=== PATIENT | female | born 1995 | race Hispanic/Latino ===

== ENCOUNTER 2019-07-04 14:58 | Emergency (ER) | payer SELFPAY ==
--- NOTE | 2019-07-04 16:10 | ER ---
Nurse's Notes [facility] Name: Rona Godwin Age: 23 yrs Sex: Female : 1995 Arrival Date: 07/04/2019 Time: 15:01 Bed 12 Private MD: Diagnosis: Strain of muscle, fascia and tendon at neck level Presentation: 07/04 15:02 Presenting complaint: Patient states: right face/arm/hand pain x 3 months. Denies fall sv or injury. Transition of care: patient was not received from another setting of care. Onset of symptoms was March 2019. Risk Assessment: Do you want to hurt yourself or someone else? Patient reports no desire to harm self or others. Care prior to arrival: None. 15:02 Method Of Arrival: Ambulatory sv 15:02 Acuity: LOGAN 4 sv 15:03 Initial Sepsis Screen: Does the patient meet any 2 criteria? No. Patient's initial sv sepsis screen is negative. Does the patient have a suspected source of infection? No. Patient's initial sepsis screen is negative. 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 sv Triage Assessment: 15:08 General: Appears in no apparent distress. comfortable, Behavior is calm, cooperative, sv appropriate for age. Pain: Complains of pain in right zygomatic area, right cheek and right arm. Neuro: Level of Consciousness is awake, alert, obeys commands, Gait is steady. Respiratory: Respiratory effort is even, unlabored, Respiratory pattern is regular, symmetrical. 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 - Social history:: Smoking status: Patient/guardian denies using tobacco. - Ebola Screening: : No symptoms or risks identified at this time. Screenin:10 Abuse screen: Denies threats or abuse. Nutritional screening: No deficits noted. tw2 Tuberculosis screening: No symptoms or risk factors identified. Fall Risk None identified. Assessment: 15:10 General: Appears in no apparent distress. obese, well groomed, Behavior is calm, tw2 cooperative, appropriate for age. Pain: Complains of pain in right arm and right cheek and right zygomatic area. Neuro: Level of Consciousness is awake, alert, obeys commands, Oriented to person, place, time, situation. Cardiovascular: Patient's skin is warm and dry. Respiratory: Airway is patent Respiratory effort is even, unlabored, Respiratory pattern is regular, symmetrical. GI: No signs and/or symptoms were reported involving the gastrointestinal system. : No signs and/or symptoms were reported regarding the genitourinary system. EENT: No signs and/or symptoms were reported regarding the EENT system. Musculoskeletal: Circulation, motion, and sensation intact. Range of motion: intact in all extremities, Reports pain in right arm and back of neck and shoulders. 15:10 Reassessment: use of supervisor byproducts Ameya # [id number] at this time. tw2 16:32 Reassessment: Patient appears in no apparent distress at this time. No changes from tw2 previously documented assessment. Patient and/or family updated on plan of care and expected duration. Pain level reassessed. Patient is alert, oriented x 3, equal unlabored respirations, skin warm/dry/pink. Vital Signs: 15:03 BP 124 / 88; Pulse 84; Resp 16; Temp 98; Pulse Ox 99% ; sv ED Course: 15:01 Patient arrived in ED. mr 15:03 Triage completed. sv 15:03 Arm band placed on. sv 15:10 Mona Espinoza, RN is Primary Nurse. tw2 15:10 Bed in low position. Call light in reach. Adult w/ patient. tw2 15:12 Chandrakant Muñoz NP is PHCP. pm1 15:12 Selvin Alexander MD is Attending Physician. pm1 16:33 No provider procedures requiring assistance completed. Patient did not have IV access tw2 during this emergency room visit. Administered Medications: 16:20 Drug: Flexeril 10 mg Route: PO; tw2 16:32 Follow up: Response: No adverse reaction tw2 16:20 Drug: predniSONE 60 mg Route: PO; tw2 16:32 Follow up: Response: No adverse reaction tw2 16:20 Drug: Emeigh 5 mg-325 mg 1 tabs Route: PO; tw2 16:31 Follow up: Response: No adverse reaction; Pain is decreased; RASS: Alert and Calm (0) tw2 Outcome: 16:10 Discharge ordered by . pm1 16:34 Discharged to home ambulatory, with friend. tw2 16:34 Condition: stable 16:34 Discharge instructions given to patient, friend, Instructed on discharge instructions, follow up and referral plans. no drinking with medication, no driving heavy equipment, medication usage, Demonstrated understanding of instructions, follow-up care, medications, Prescriptions given X 3. 16:34 Patient left the ED. tw2 Signatures: Ilda Matos RN RN Yana Roy ToniChandrakant NP DIRECTOR OF MARKET INTELLIGENCE pm1 Mona Espinoza RN RN tw2 Corrections: (The following items were deleted from the chart) 15:04 15:02 Presenting complaint: Patient states: right face/arm/hand pain x 3 months sv sv 15:07 15:02 Presenting complaint: Patient states: right face/arm/hand pain x 3 months. sv sv
--- NOTE | 2019-07-04 16:11 | EDPHYS ---
Physician Documentation [facility] Name: Rona Godwin Age: 23 yrs Sex: Female : 1995 Arrival Date: 07/04/2019 Time: 15:01 Bed 12 Private MD: ED Physician Selvin Alexander HPI: 07/04 16:09 This 23 yrs old Female presents to ER via Ambulatory with complaints of Right pm1 Shoulder Pain. 16:09 The patient or guardian complains of pain. pm1 16:09 right trapezius. Context: resulted from an unknown reason, The patient reports no pm1 decreased range of motion. The patient reports no obvious deformity. Onset: The symptoms/episode began/occurred 3 month(s) ago. Modifying factors: the symptoms are alleviated by nothing. The symptoms are aggravated by movement. Associated signs and symptoms: Pertinent negatives: abdominal pain, chest pain, Numbness in right arm tingling. Severity of symptoms: in the emergency department the symptoms are unchanged. Treatment prior to arrival includes: no previous treatment. The patient has not experienced similar symptoms in the past. The patient has not recently seen a physician. 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 - Social history:: Smoking status: Patient/guardian denies using tobacco. - Ebola Screening: : No symptoms or risks identified at this time. ROS: 16:09 Constitutional: Negative for fever, chills, and weight loss. pm1 16:09 Cardiovascular: Negative for chest pain, palpitations, and edema, Respiratory: Negative for shortness of breath, cough, wheezing, and pleuritic chest pain, Abdomen/GI: Negative for abdominal pain, nausea, vomiting, diarrhea, and constipation. 16:09 MS/Extremity: Negative for injury and deformity, Skin: Negative for injury, rash, and discoloration. 16:09 Neuro: Negative for headache, weakness, numbness, tingling, and seizure. 16:09 Neck: Positive for pain with movement. 16:09 Back: Positive for of the right trapezius, Pain. Exam: 16:09 Constitutional: This is a well developed, well nourished patient who is awake, alert, pm1 and in no acute distress. 16:09 Eyes: Pupils equal round and reactive to light, extra-ocular motions intact. Lids and lashes normal. Conjunctiva and sclera are non-icteric and not injected. Cornea within normal limits. Periorbital areas with no swelling, redness, or edema. ENT: Nares patent. No nasal discharge, no septal abnormalities noted. Tympanic membranes are normal and external auditory canals are clear. Oropharynx with no redness, swelling, or masses, exudates, or evidence of obstruction, uvula midline. Mucous membranes moist. 16:09 Chest/axilla: Normal chest wall appearance and motion. Nontender with no deformity. No lesions are appreciated. Cardiovascular: Regular rate and rhythm with a normal S1 and S2. No gallops, murmurs, or rubs. Normal PMI, no JVD. No pulse deficits. Respiratory: Lungs have equal breath sounds bilaterally, clear to auscultation and percussion. No rales, rhonchi or wheezes noted. No increased work of breathing, no retractions or nasal flaring. Abdomen/GI: Soft, non-tender, with normal bowel sounds. No distension or tympany. No guarding or rebound. No evidence of tenderness throughout. 16:09 Skin: Warm, dry with normal turgor. Normal color with no rashes, no lesions, and no evidence of cellulitis. MS/ Extremity: Pulses equal, no cyanosis. Neurovascular intact. Full, normal range of motion. 16:09 Head/face: Noted is no obvious of injury or deformity except tenderness, of the right side of scalp. 16:09 Neck: External neck: crepitus, is not appreciated, tenderness, of the occiput and right trapezius. 16:09 Back: muscle spasm, is appreciated in the right trapezius and right scapular area. 16:09 Neuro: Orientation: is normal, Motor: is normal, moves all fours, Gait: is steady, at a normal pace, without difficulty. Vital Signs: 15:03 BP 124 / 88; Pulse 84; Resp 16; Temp 98; Pulse Ox 99% ; sv MDM: 15:22 Patient medically screened. [facility] 16:09 Data reviewed: vital signs. Data interpreted: Pulse oximetry: on room air is 99 %. pm1 Interpretation: normal. Counseling: I had a detailed discussion with the patient and/or guardian regarding: the historical points, exam findings, and any diagnostic results supporting the discharge/admit diagnosis, the need for outpatient follow up, to return to the emergency department if symptoms worsen or persist or if there are any questions or concerns that arise at home. Administered Medications: 16:20 Drug: Flexeril 10 mg Route: PO; tw2 16:32 Follow up: Response: No adverse reaction tw2 16:20 Drug: predniSONE 60 mg Route: PO; tw2 16:32 Follow up: Response: No adverse reaction tw2 16:20 Drug: Wallace 5 mg-325 mg 1 tabs Route: PO; tw2 16:31 Follow up: Response: No adverse reaction; Pain is decreased; RASS: Alert and Calm (0) tw2 Disposition: 07/05 07:00 Co-signature as Attending Physician, Selvin Alexander MD I agree with the assessment and phu plan of care. Disposition: 07/04/19 16:10 Discharged to Home. Impression: Strain of muscle, fascia and tendon at neck level. - Condition is Stable. - Discharge Instructions: Muscle Strain. - Prescriptions for Tylenol- Codeine #3 300-30 mg Oral Tablet - take 2 tablets by ORAL route every 6 hours As needed; 20 tablet. Cyclobenzaprine 10 mg Oral Tablet - take 1 tablet by ORAL route every 8 hours As needed; 30 tablet. Medrol (Demarco) 4 mg Oral Tablets, Dose Pack - take 1 tablet by ORAL route as directed - follow package instructions; 1 packet. - Work release form, Medication Reconciliation Form, Thank You Letter, Antibiotic Education, Prescription Opioid Use form. - Follow up: Emergency Department; When: As needed; Reason: Worsening of condition. Follow up: Private Physician; When: 2 - 3 days; Reason: Recheck today's complaints, Continuance of care, Re-evaluation by your physician. - Problem is new. - Symptoms have improved. Signatures: Idla Matos RN RN sv Anderson, Corey, MD MD cha Marinas, Patrick, HYPNOTHERAPIST HYPNOTHERAPIST pm1 Mona Espinoza RN RN tw2 Corrections: (The following items were deleted from the chart) 07/04 16:34 16:10 07/04/2019 16:10 Discharged to Home. Impression: Strain of muscle, fascia and tw2 tendon at neck level. Condition is Stable. Forms are Medication Reconciliation Form, Thank You Letter, Antibiotic Education, Prescription Opioid Use. Follow up: Emergency Department; When: As needed; Reason: Worsening of condition. Follow up: Private Physician; When: 2 - 3 days; Reason: Recheck today's complaints, Continuance of care, Re-evaluation by your physician. Problem is new. Symptoms have improved. pm1
[2019-07-04] MEDS ORDERED: CYCLOBENZAPRINE 10 MG TAB ONE (16:14)
[2019-07-04] MEDS ORDERED: HYDROCODONE/APAP 5/325 MG TAB ONE (16:15)
[2019-07-04] MEDS ORDERED: predniSONE 20 MG TAB ONE (16:15)
[2019-07-04 16:49] VITALS: BP 124/88; TEMP 98; O2SAT 99
== END 2019-07-04 16:34 | disposition home or self-care (01) ==
LOC: ER 14:58
DX: S16.1XXA Strain of muscle, fascia and tendon at neck level, initial encounter (principal); X58.XXXA Exposure to other specified factors, initial encounter; Y93.9 Activity, unspecified; Y92.9 Unspecified place or not applicable
CPT/HCPCS: 99283; J7512

== ENCOUNTER 2019-08-12 23:44 | Emergency (ER) | payer SELFPAY ==
--- OUTSIDE RECORDS SUMMARY | 2019-08-12 23:46 | XMS REPORT ---
:1995 [facility] Address [address] [place] [address] Dr. Hewitt [address] [place] [id number] Care Team Providers Name Role Phone Unavailable Unavailable Unavailable Problems This patient has no known problems. Allergies, Adverse Reactions, Alerts This patient has no known allergies or adverse reactions. Medications This patient has no known medications.
[2019-08-13] MEDS ORDERED: CYCLOBENZAPRINE 10 MG TAB ONE (00:47)
[2019-08-13] MEDS ORDERED: HYDROCODONE/APAP 7.5/325 MG TAB ONE (00:48)
--- NOTE | 2019-08-13 00:57 | ER ---
Nurse's Notes [facility] Name: Rona Godwin Age: 23 yrs Sex: Female : 1995 Arrival Date: 08/12/2019 Time: 23:48 Bed 18 Private MD: Diagnosis: Paresthesia of skin;Low back pain;Pain in right arm Presentation: 08/13 00:00 Presenting complaint: Patient states: "I've been having this right arm radiating to cc3 right leg pain since 3 months. 3 days ago I started to have right flank pain". Transition of care: patient was not received from another setting of care. Onset of symptoms was August 13, 2019. Risk Assessment: Do you want to hurt yourself or someone else? Patient reports no desire to harm self or others. Initial Sepsis Screen: Does the patient meet any 2 criteria? No. Patient's initial sepsis screen is negative. Does the patient have a suspected source of infection? No. Patient's initial sepsis screen is negative. Care prior to arrival: None. 00:00 Method Of Arrival: Ambulatory cc3 00:00 Acuity: LOGAN 4 cc3 Triage Assessment: 00:00 General: Appears in no apparent distress. comfortable, Behavior is calm, cooperative, cc3 appropriate for age. Pain: Complains of pain in right arm, right leg, right flank Pain currently is 8 out of 10 on a pain scale. Quality of pain is described as aching. EENT: No signs and/or symptoms were reported regarding the EENT system. Neuro: Level of Consciousness is awake, alert, obeys commands, Oriented to person, place, time, situation, Appropriate for age. Cardiovascular: Denies chest pain, Capillary refill < 3 seconds in bilateral fingers Patient's skin is warm and dry. Respiratory: Airway is patent Respiratory effort is even, unlabored, Respiratory pattern is regular, symmetrical, Breath sounds are clear bilaterally. GI: Abdomen is round non-distended, Bowel sounds present X 4 quads. : No signs and/or symptoms were reported regarding the genitourinary system. Derm: Skin is intact, is healthy with good turgor, Skin is pink, warm \\T\\ dry. normal. Musculoskeletal: Circulation, motion, and sensation intact. Range of motion: intact in all extremities. 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 - Social history:: Smoking status: Patient/guardian denies using tobacco, but has a distant history of tobacco abuse. - Ebola Screening: : No symptoms or risks identified at this time. Screenin:00 Abuse screen: Denies threats or abuse. Denies injuries from another. Nutritional cc3 screening: No deficits noted. Tuberculosis screening: No symptoms or risk factors identified. Fall Risk Ambulatory Aid- None/Bed Rest/Nurse Assist (0 pts). Gait- Normal/Bed Rest/Wheelchair (0 pts) Mental Status- Oriented to own ability (0 pts). Assessment: 00:00 General: see triage assessment. cc3 01:15 Reassessment: Patient appears in no apparent distress at this time. Patient and/or cc3 family updated on plan of care and expected duration. Pain level reassessed. Patient is alert, oriented x 3, equal unlabored respirations, skin warm/dry/pink. SUPERVISOR CORE SHOP Kassie discharged the patient home with prescription given. No IV cannula in situ. Patient left ER vitally stable and ambulatory with her family. No valuables left in the patient's room. Patient denies pain at this time. Patient states feeling better. Patient states symptoms have improved. Vital Signs: 00:00 BP 112 / 55; Pulse 84; Resp 16 S; Temp 98.3(O); Pulse Ox 98% on R/A; Weight 74.84 kg cc3 (R); Height 5 ft. 6 in. (167.64 cm) (R); Pain 8/10; 01:08 BP 115 / 64; Pulse 80; Resp 16 S; Pulse Ox 98% on R/A; cc3 00:00 Body Mass Index 26.63 (74.84 kg, 167.64 cm) cc3 ED Course: 08/12 23:48 Patient arrived in ED. cl3 08/13 00:00 Gunn[facility] Fernando [facility]-C [facility] la1 00:00 Selvin Alexander MD is Attending Physician. la1 00:00 Patient has correct armband on for positive identification. Bed in low position. Call cc3 light in reach. Side rails up X2. Pulse ox on. NIBP on. 00:00 Arm band placed on right wrist. Patient notified of wait time. cc3 00:12 Pam Gibson is Primary Nurse. cc3 00:25 Triage completed. cc3 01:15 No provider procedures requiring assistance completed. Patient did not have IV access cc3 during this emergency room visit. Administered Medications: 00:45 Drug: [place] (7.5 mg-325 mg) 1 tabs {Note: RASS 0.} Route: PO; cc3 01:15 Follow up: Response: No adverse reaction; Pain is decreased; RASS: Alert and Calm (0) cc3 00:45 Drug: Flexeril 10 mg Route: PO; cc3 01:15 Follow up: Response: No adverse reaction; Pain is decreased cc3 Outcome: 00:56 Discharge ordered by . la1 01:15 Discharged to home ambulatory, with family. cc3 01:15 Condition: stable 01:15 Discharge instructions given to patient, Instructed on discharge instructions, follow up and referral plans. medication usage, Demonstrated understanding of instructions, follow-up care, medications, Prescriptions given X 1. 01:23 Patient left the ED. cc3 Signatures: Gunnar Fernando, ENGINE HEAD REPAIRER-C ENGINE HEAD REPAIRER-Cla1 Pam Gibson cc3 Darlyn Sosa cl3
--- NOTE | 2019-08-13 00:58 | EDPHYS ---
Physician Documentation [facility] Name: Rona Godwin Age: 23 yrs Sex: Female : 1995 Arrival Date: 08/12/2019 Time: 23:48 Bed 18 Private MD: ED Physician Selvin Alexander HPI: 08/13 00:41 This 23 yrs old Female presents to ER via Ambulatory with complaints of Arm la1 Pain. 00:41 The patient or guardian complains of pain, tingling. The complaints affect the right la1 arm. Context: The problem was sustained at an unknown location, resulted from unknown. Onset: The symptoms/episode began/occurred 3 month(s) ago. Treatment prior to arrival includes: no previous treatment. Modifying factors: The symptoms are alleviated by nothing. the symptoms are aggravated by movement. Severity of symptoms: At their worst the symptoms were mild. The patient has experienced similar episodes in the past. Pt reports three months of intermittent pain and tingling to right arm that goes down to hand then recently in the past day began having pain in the right hip area that radiates to the right foot . 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 - Social history:: Smoking status: Patient/guardian denies using tobacco, but has a distant history of tobacco abuse. - Ebola Screening: : No symptoms or risks identified at this time. ROS: 00:43 Constitutional: Negative for fever, chills, and weight loss, Eyes: Negative for injury, la1 pain, redness, and discharge, ENT: Negative for injury, pain, and discharge, Neck: Negative for injury, pain, and swelling, Cardiovascular: Negative for chest pain, palpitations, and edema, Respiratory: Negative for shortness of breath, cough, wheezing, and pleuritic chest pain, Abdomen/GI: Negative for abdominal pain, nausea, vomiting, diarrhea, and constipation, Back: Negative for injury and pain, MS/Extremity: Negative for injury and deformity, Neuro: + for tingling in right arm and leg Exam: 00:43 Constitutional: This is a well developed, well nourished patient who is awake, alert, la1 and in no acute distress. Head/Face: Normocephalic, atraumatic. Eyes: Pupils equal round and reactive to light, extra-ocular motions intact. ENT: Mucous membranes moist. Neck: Supple, full range of motion without nuchal rigidity No Meningismus. Pain with downward traction and rotation of neck, mild point tenderness to C-spine Chest/axilla: Normal chest wall appearance and motion. Nontender with no deformity. No lesions are appreciated. Cardiovascular: Regular rate and rhythm with a normal S1 and S2. No gallops, murmurs, or rubs. Normal PMI, no JVD. No pulse deficits. Skin: Warm, dry with normal turgor. Normal color with no rashes, no lesions, and no evidence of cellulitis. MS/ Extremity: Pulses equal, no cyanosis. Neurovascular intact. Full, normal range of motion. Vital Signs: 00:00 BP 112 / 55; Pulse 84; Resp 16 S; Temp 98.3(O); Pulse Ox 98% on R/A; Weight 74.84 kg cc3 (R); Height 5 ft. 6 in. (167.64 cm) (R); Pain 8/10; 01:08 BP 115 / 64; Pulse 80; Resp 16 S; Pulse Ox 98% on R/A; cc3 00:00 Body Mass Index 26.63 (74.84 kg, 167.64 cm) cc3 MDM: 00:00 Patient medically screened. la1 00:52 Data reviewed: vital signs, nurses notes, I have discussed the patient's la1 presentation/case with the attending Emergency Department Physician; and as a result, I will discharge patient. Data interpreted: Pulse oximetry: on room air is 98 %. Interpretation: normal. Counseling: I had a detailed discussion with the patient and/or guardian regarding: the historical points, exam findings, and any diagnostic results supporting the discharge/admit diagnosis, to return to the emergency department if symptoms worsen or persist or if there are any questions or concerns that arise at home. ED course: Discussed exam and ROS findings with patient, has had this issue many times in the past and has taken steroids which eliminate the pain but then it comes back worse. Pt has been seen in multiple EDs for this complaint but has never followed up outpatient, pt is not interested in having a CT scan in the emergency department and wishes to follow up outpatient. Pt reports back in the right hip area and tingling/numbness in the l5-s1 distribution. Denies saddle anesthesia, loss of continence. Full ROM of arm and leg, motor function intact, no pulse deficits. Given information for neurology clinics in the area and return precautions. Administered Medications: 00:45 Drug: [place] (7.5 mg-325 mg) 1 tabs {Note: RASS 0.} Route: PO; cc3 01:15 Follow up: Response: No adverse reaction; Pain is decreased; RASS: Alert and Calm (0) cc3 00:45 Drug: Flexeril 10 mg Route: PO; cc3 01:15 Follow up: Response: No adverse reaction; Pain is decreased cc3 Disposition: 08/13/19 00:56 Discharged to Home. Impression: Paresthesia of skin, Low back pain, Pain in right arm. - Condition is Stable. - Discharge Instructions: Paresthesia, Back Pain, Adult, [id number], Heat Therapy, Radicular Pain. - Prescriptions for Cyclobenzaprine 10 mg Oral Tablet - take 1 tablet by ORAL route every 8 hours As needed; 30 tablet. - Work release form, Medication Reconciliation Form, Thank You Letter form. - Follow up: Private Physician; When: 2 - 3 days; Reason: Recheck today's complaints, Re-evaluation by your physician. - Problem is an ongoing problem. - Symptoms are unchanged. Addendum: 08/14/2019 09:25 Co-signature as Attending Physician, Selvin Alexander MD I agree with the assessment and c ambriz plan of care. Signatures: Dispatcher [employer] EDID Selvin Alexander MD MD cha Attema, Lee, FINISHER OPERATOR-C FINISHER OPERATOR-Cla1 Pma Gibson cc3 Corrections: (The following items were deleted from the chart) 08/13 01:11 00:52 ED course: Discussed exam and ROS findings with patient, has had this issue many la1 times in the past and has taken steroids which eliminate the pain but then it comes back worse. Pt has been seen in multiple EDs for this complaint but has never followed up outpatient, pt is not interested in having a CT scan in the emergency department and wishes to follow up outpatient. Pt reports back in the right hip area and tingling/numbness in the l5-s1 distribution. Denies saddle anesthesia, loss of continence. Full ROM of arm and leg, motor function intact, no pulse deficits. . la1 01:14 00:41 C Spine Wo Con+CT.RAD.BRZ ordered. EDMS EDMS 01:23 00:56 08/13/2019 00:56 Discharged to Home. Impression: Paresthesia of skin; Low back cc3 pain; Pain in right arm. Condition is Stable. Forms are Medication Reconciliation Form, Thank You Letter, Antibiotic Education, Prescription Opioid Use. Follow up: Private Physician; When: 2 - 3 days; Reason: Recheck today's complaints, Re-evaluation by your physician. Problem is an ongoing problem. Symptoms are unchanged. la1
[2019-08-13 01:48] VITALS: BP 112/55; TEMP 98.3; O2SAT 98
== END 2019-08-13 01:23 | disposition home or self-care (01) ==
LOC: ER 23:44
DX: R20.2 Paresthesia of skin (principal); M54.5 Low back pain; Z88.4 Allergy status to anesthetic agent
CPT/HCPCS: 99283

== ENCOUNTER 2023-05-09 02:25 | Inpatient (IN) | payer SELFPAY ==
--- OUTSIDE RECORDS SUMMARY | 2023-05-09 02:29 | XMS REPORT | Continuity of Care Document ---
:1995 Author Organization [facility] t Address [address] [facility] [address] [place] [id number] Care Team Providers Name Role Phone SANFORD ZAPATA Attending Clinician Unavailable Problems This patient has no known problems. Allergies, Adverse Reactions, Alerts Allergy Allergy Status Severity Reaction(s) Onset Inactive Treating Comm ents Source Name Type Date Date Clinician NAPROXEN DRUG Active Rash [facility] INGREDI 04-19 ity of 00:00: [address] Medications This patient has no known medications. Procedures This patient has no known procedures. Encounters Start End Encounter Admission Attending Care Care Encounter Source Date/Time Date/Time Type Type Clinicians Facility Department ID 2021-03-15 2021-03-15 Emergency X [facility] [[email or web address] ERT [id number] [facility] 21:46:00 21:46:00 [facility] 2019-08-16 2019-08-16 Emergency X [facility] [[email or web address] ERT [id number] [facility] 12:22:12 13:13:[address] [facility] Results This patient has no known results.
[2023-05-09 03:17] LABS: Absolute Lymphocytes (CBC) 2.4 K/uL (0.7-4.9); Hematocrit 37.5 % (36.0-45.0); Lymphocytes % 29.1 % (15.3-44.8); MCV 86.4 fL (80-100); MPV 7.4 fL (7.6-11.3); Platelets 255 thou/uL (152-406); RBC Red Blood Cell Count 4.34 M/uL (3.86-4.86)
[2023-05-09] MEDS ORDERED: NA CHLORIDE 0.9% 1,000 ML ONE (03:23)
[2023-05-09] MEDS ORDERED: FAMOTIDINE 20 MG/2 ML VIAL IV ONE (03:23)
[2023-05-09] MEDS ORDERED: ONDANSETRON 4 MG/2 ML VIAL ONE ×3 (03:23→13:09)
[2023-05-09 03:28] LABS: Specific Gravity 1.018 (1.005-1.030); Urine Bacteria 20-50 /HPF (<20); Urine Bilirubin NEGATIVE (Negative); Urine Blood Trace (Negative); Urine Clarity Extremely Turbid (Clear); Urine Color Yellow (Yellow); Urine Glucose NEGATIVE (Negative); Urine Mucus 4+ /HPF (None Seen); Urine Protein TRACE (Negative); Urine Urobilinogen Normal (Normal); Urine WBC Clump Many /HPF (None Seen)
[2023-05-09 03:33] LABS: Albumin 3.5 g/dL (3.4-5.0); Bilirubin Total 0.6 mg/dL (0.2-1.0); Potassium 3.4 mEq/L (3.5-5.1); Protein, Total 6.8 g/dL (6.4-8.2); Specific Gravity 1.027 (1.005-1.030)
[2023-05-09] MEDS ORDERED: MAGNES/ALUMIN/SIMET 30ML UCUP ONE (04:50)
[2023-05-09] MEDS ORDERED: CEFTRIAXONE 1000 MG/VIAL ONE (04:50)
[2023-05-09] MEDS ORDERED: CIPROFLOXACIN HCL 500 MG TAB ONE (04:50)
[2023-05-09] MEDS ORDERED: MORPHINE 4 MG/ML SYR ONE (06:02)
--- NOTE | 2023-05-09 06:08 | ER ---
Nurse's Notes [facility] Name: Rona Godwin Age: 27 yrs Sex: Female : 1995 Arrival Date: 05/09/2023 Time: 02:25 Bed 19 Private MD: Diagnosis: Cholecystitis, unspecified;Other cholelithiasis with obstruction;UTI/ Urinary tract infection, site not specified;Epigastric abdominal tenderness Presentation: 05/09 03:18 Chief complaint: Patient states: epigastric pain, burning up to throat. Coronavirus sg5 screen: At this time, the client does not indicate any symptoms associated with coronavirus-19. Ebola Screen: No symptoms or risks identified at this time. Initial Sepsis Screen: Does the patient meet any 2 criteria? No. Patient's initial sepsis screen is negative. Does the patient have a suspected source of infection? No. Patient's initial sepsis screen is negative. Risk Assessment: Do you want to hurt yourself or someone else? Patient reports no desire to harm self or others. Onset of symptoms was May 09, 2023. 03:18 Method Of Arrival: Ambulatory sg5 03:18 Acuity: LOGAN 3 sg5 Triage Assessment: 03:20 General: Appears uncomfortable, Behavior is calm, cooperative, appropriate for age. sg5 Pain: Complains of pain in epigastric, chest and throat Pain does not radiate. Pain currently is 8 out of 10 on a pain scale. Quality of pain is described as burning. GI: Abdomen is round non-distended. Historical: - Allergies: 03:20 Naproxen; sg5 - Immunization history:: Adult Immunizations up to date. - Social history:: Smoking status: Patient denies any tobacco usage or history of. - Family history:: not pertinent. Assessment: 04:34 General: Appears uncomfortable, Behavior is calm, cooperative, appropriate for age. sg5 Pain: Complains of pain in epigastric. Neuro: Level of Consciousness is awake, alert, obeys commands, Oriented to person, place, time, situation, Appropriate for age. Cardiovascular: Capillary refill < 3 seconds Patient's skin is warm and dry. Respiratory: Airway is patent Trachea midline Respiratory effort is even, unlabored, Respiratory pattern is regular, symmetrical. GI: Abdomen is round non-distended, Bowel sounds present X 4 quads. Abd is soft and non tender. : No signs and/or symptoms were reported regarding the genitourinary system. EENT: No signs and/or symptoms were reported regarding the EENT system. Derm: No signs and/or symptoms reported regarding the dermatologic system. Musculoskeletal: No signs and/or symptoms reported regarding the musculoskeletal system. 07:00 Reassessment: Patient is alert, oriented x 3, equal unlabored respirations, skin aa5 warm/dry/pink. Pt notified of room assignment and wait time to be transferred to admitting floor. . General: Appears comfortable. 07:45 Reassessment: Patient is alert, oriented x 3, equal unlabored respirations, skin aa5 warm/dry/pink. Vital Signs: 03:18 BP 118 / 73; Pulse 60; Resp 16; Temp 98.1(O); Pulse Ox 98% on R/A; Pain 8/10; sg5 03:21 Weight 99.79 kg; Height 5 ft. 6 in. ; sg5 04:33 BP 111 / 58; Pulse 78; Resp 18; Pulse Ox 98% on R/A; Pain 6/10; sg5 05:42 BP 121 / 74; Pulse 58; Resp 18; Pulse Ox 100% on R/A; Pain 8/10; sg5 06:34 BP 109 / 56; Pulse 58; Resp 18; Pulse Ox 100% on 2 lpm NC; Pain 5/10; sg5 07:30 BP 107 / 52; Pulse 55; Resp 16 S; Temp 97.9(TE); Pulse Ox 99% on R/A; aa5 03:21 Body Mass Index 35.51 (99.79 kg, 167.64 cm) sg5 03:18 Pain Scale: Adult sg5 04:33 Pain Scale: Adult sg5 05:42 Pain Scale: Adult sg5 06:34 Pain Scale: Adult sg5 ED Course: 02:29 Patient arrived in ED. kj1 02:39 Selvin Alexander MD is Attending Physician. phu 02:59 Ilda Connell, ROMAINE is Primary Nurse. sg5 03:20 Triage completed. sg5 03:20 Arm band placed on right wrist. sg5 04:01 CT Abd/Pelvis - IV Contrast Only In Process Unspecified. EDMS 05:32 US Abdomen Limited In Process Unspecified. EDMS 06:05 Jorje Mtz MD is Hospitalizing Provider. [facility] Administered Medications: 03:18 Drug: NS 0.9% IV 1000 ml Route: IV; Rate: 1 bolus; Site: right antecubital; sg5 06:02 Follow up: IV Status: Completed infusion sg5 03:18 Drug: Famotidine IVP 20 mg Route: IVP; Site: right antecubital; sg5 03:18 Drug: Ondansetron IVP 4 mg Route: IVP; Site: right antecubital; sg5 04:57 Drug: Rocephin IV 1 grams Route: IV; Rate: per protocol; Site: right antecubital; sg5 04:57 Drug: Ciprofloxacin PO 500 mg Route: PO; sg5 04:58 Drug: Alum-Mag Hydroxide-Simeth PO Suspension (200 mg-200 mg-20 mg/5 mL) 30 ml Route: sg5 PO; 06:00 Drug: Ondansetron IVP 4 mg Route: IVP; Site: right antecubital; sg5 06:01 Drug: morphine IVP or IV 4 mg Route: IVP; Infused Over: 4 mins; Site: right antecubital;sg5 06:17 Drug: Piperacillin-Tazobactam IVPB 3.375 grams Route: IVPB; Infused Over: 60 mins; sg5 Site: right antecubital; Outcome: 06:07 Decision to Hospitalize by Provider. [facility] 07:40 Admitted to Med/surg accompanied by tech, family with patient, via wheelchair, with aa5 chart, Report called to Ivory 07:40 Condition: stable 07:40 Instructed on the need for admit, Demonstrated understanding of instructions. 08:00 Patient left the ED. aa5 Signatures: Dispatcher [employer] [facility] Selvin Alexander MD MD cha Calderon, Audri RN RN hemanth5 Lissa Elizalde1 Ilda Connell RN RN sg5 Corrections: (The following items were deleted from the chart) 08:30 08:09 Patient left the ED. aa5 aa5
--- NOTE | 2023-05-09 06:08 | EDPHYS ---
Physician Documentation [facility] Name: Rona Godwin Age: 27 yrs Sex: Female : 1995 Arrival Date: 05/09/2023 Time: 02:25 Bed 19 Private MD: BRENDA Physician Selvin Alexander HPI: 05/09 05:16 This 27 yrs old Female presents to ER via Ambulatory with complaints of [facility] Abdominal Pain. 05:16 The patient or guardian reports chest pain that is located primarily in the anterior [facility] chest wall. The patient presents with abdominal pain in the upper abdomen, abdominal distention in the upper abdomen. Onset: The symptoms/episode began/occurred yesterday. The symptoms do not radiate. The pain does not radiate. Associated signs and symptoms: Pertinent positives: dysuria, nausea. The symptoms are described as crampy, shooting. Modifying factors: The symptoms are alleviated by nothing, the symptoms are aggravated by nothing. Associated signs and symptoms: Pertinent positives: nausea. Historical: - Allergies: 03:20 Naproxen; sg5 - Immunization history:: Adult Immunizations up to date. - Social history:: Smoking status: Patient denies any tobacco usage or history of. - Family history:: not pertinent. ROS: 05:16 Constitutional: Negative for fever, chills, and weight loss, Eyes: Negative for injury, phu pain, redness, and discharge, ENT: Negative for injury, pain, and discharge, Neck: Negative for injury, pain, and swelling, Respiratory: Negative for shortness of breath, cough, wheezing, and pleuritic chest pain, Back: Negative for injury and pain, : Negative for injury, bleeding, discharge, and swelling, MS/Extremity: Negative for injury and deformity, Skin: Negative for injury, rash, and discoloration, Neuro: Negative for headache, weakness, numbness, tingling, and seizure, Psych: Negative for depression, anxiety, suicide ideation, homicidal ideation, and hallucinations, Allergy/Immunology: Negative for hives, rash, and allergies, Endocrine: Negative for neck swelling, polydipsia, polyuria, polyphagia, and marked weight changes, Hematologic/Lymphatic: Negative for swollen nodes, abnormal bleeding, and unusual bruising. 05:16 Cardiovascular: Positive for chest pain. 05:16 Abdomen/GI: Positive for abdominal pain, of the epigastric area. 05:16 : Positive for urinary symptoms, urinary frequency, small amounts, burning with urination. Exam: 05:16 Constitutional: This is a well developed, well nourished patient who is awake, alert, phu and in no acute distress. Head/Face: Normocephalic, atraumatic. Eyes: Pupils equal round and reactive to light, extra-ocular motions intact. Lids and lashes normal. Conjunctiva and sclera are non-icteric and not injected. Cornea within normal limits. Periorbital areas with no swelling, redness, or edema. ENT: Nares patent. No nasal discharge, no septal abnormalities noted. Tympanic membranes are normal and external auditory canals are clear. Oropharynx with no redness, swelling, or masses, exudates, or evidence of obstruction, uvula midline. Mucous membranes moist. Neck: Trachea midline, no thyromegaly or masses palpated, and no cervical lymphadenopathy. Supple, full range of motion without nuchal rigidity, or vertebral point tenderness. No Meningismus. Chest/axilla: Normal chest wall appearance and motion. Nontender with no deformity. No lesions are appreciated. Cardiovascular: Regular rate and rhythm with a normal S1 and S2. No gallops, murmurs, or rubs. Normal PMI, no JVD. No pulse deficits. Respiratory: Lungs have equal breath sounds bilaterally, clear to auscultation and percussion. No rales, rhonchi or wheezes noted. No increased work of breathing, no retractions or nasal flaring. Abdomen/GI: Soft, non-tender, with normal bowel sounds. No distension or tympany. No guarding or rebound. No evidence of tenderness throughout. Back: No spinal tenderness. No costovertebral tenderness. Full range of motion. Skin: Warm, dry with normal turgor. Normal color with no rashes, no lesions, and no evidence of cellulitis. MS/ Extremity: Pulses equal, no cyanosis. Neurovascular intact. Full, normal range of motion. Neuro: Awake and alert, GCS 15, oriented to person, place, time, and situation. Cranial nerves II-XII grossly intact. Motor strength 5/5 in all extremities. Sensory grossly intact. Cerebellar exam normal. Normal gait. 05:16 ECG was reviewed by the Attending Physician. Vital Signs: 03:18 BP 118 / 73; Pulse 60; Resp 16; Temp 98.1(O); Pulse Ox 98% on R/A; Pain 8/10; sg5 03:21 Weight 99.79 kg; Height 5 ft. 6 in. ; sg5 04:33 BP 111 / 58; Pulse 78; Resp 18; Pulse Ox 98% on R/A; Pain 6/10; sg5 05:42 BP 121 / 74; Pulse 58; Resp 18; Pulse Ox 100% on R/A; Pain 8/10; sg5 06:34 BP 109 / 56; Pulse 58; Resp 18; Pulse Ox 100% on 2 lpm NC; Pain 5/10; sg5 07:30 BP 107 / 52; Pulse 55; Resp 16 S; Temp 97.9(TE); Pulse Ox 99% on R/A; aa5 03:21 Body Mass Index 35.51 (99.79 kg, 167.64 cm) sg5 03:18 Pain Scale: Adult sg5 04:33 Pain Scale: Adult sg5 05:42 Pain Scale: Adult sg5 06:34 Pain Scale: Adult sg5 MDM: 02:39 Patient medically screened. phu 05:19 HEART Score: History: Slightly Suspicious (0), ECG: Normal (0), Age: < or = 45 years phu (0), Risk Factors: No Risk Factors Known (0), Troponin: < or = 1 x Normal Limit (0), Total Score = 0. FRANCISCO Risk Score: TOTAL SCORE = 0. Data reviewed: vital signs, nurses notes, lab test result(s), EKG, radiologic studies, CT scan, ultrasound. Consideration of Admission/Observation Escalation of care including admission/observation considered. I considered the following discharge prescriptions or medication management in the emergency department Medications were administered in the Emergency Department. See MAR. Independent interpretation of the following test(s) in the Emergency Department EKG: See my EKG interpretation above. Test considered but Not performed: Ultrasound no 2 d echo. Historians other than the Patient: Spouse/Significant Other: . Care significantly affected by the following chronic conditions: none. Counseling: I had a detailed discussion with the patient and/or guardian regarding the historical points, exam findings, and any diagnostic results supporting the discharge/admit diagnosis, lab results, radiology results, the need for outpatient follow up, for definitive care, a family practitioner, a general surgeon, a kitchen stewardess. 05/09 02:40 Order name: CBC with Diff; Complete Time: 04:09 [facility] 05/09 02:40 Order name: CMP; Complete Time: 04:09 [facility] 05/09 02:40 Order name: Lipase; Complete Time: 04:09 [facility] 05/09 02:40 Order name: Test, Urine; Complete Time: 04:09 [facility] 05/09 02:40 Order name: Urinalysis w/ reflexes; Complete Time: 04:09 [facility] 05/09 05:21 Order name: Troponin HS; Complete Time: 06:04 [facility] 05/09 02:40 Order name: CT Abd/Pelvis - IV Contrast Only [facility] 05/09 04:09 Order name: US Abdomen Limited [facility] 05/09 04:21 Order name: EKG; Complete Time: 04:22 [facility] 05/09 02:40 Order name: IV Saline Lock; Complete Time: 03:07 [facility] 05/09 02:40 Order name: Labs collected and sent; Complete Time: 03:07 [facility] 05/09 04:21 Order name: EKG - Nurse/Tech; Complete Time: 04:58 [facility] EC:16 Rate is 53 beats/min. Rhythm is regular. QRS [place] is Normal. DC interval is normal. QRS phu interval is normal. QT interval is normal. No Q waves. T waves are Normal. No ST changes noted. Clinical impression: NSR w/ Non-specific ST/T Changes and No evidence of ischemia. Interpreted by me. Reviewed by me. Administered Medications: 03:18 Drug: NS 0.9% IV 1000 ml Route: IV; Rate: 1 bolus; Site: right antecubital; sg5 06:02 Follow up: IV Status: Completed infusion sg5 03:18 Drug: Famotidine IVP 20 mg Route: IVP; Site: right antecubital; sg5 03:18 Drug: Ondansetron IVP 4 mg Route: IVP; Site: right antecubital; sg5 04:57 Drug: Rocephin IV 1 grams Route: IV; Rate: per protocol; Site: right antecubital; sg5 04:57 Drug: Ciprofloxacin PO 500 mg Route: PO; sg5 04:58 Drug: Alum-Mag Hydroxide-Simeth PO Suspension (200 mg-200 mg-20 mg/5 mL) 30 ml Route: sg5 PO; 06:00 Drug: Ondansetron IVP 4 mg Route: IVP; Site: right antecubital; sg5 06:01 Drug: morphine IVP or IV 4 mg Route: IVP; Infused Over: 4 mins; Site: right antecubital;sg5 06:17 Drug: Piperacillin-Tazobactam IVPB 3.375 grams Route: IVPB; Infused Over: 60 mins; sg5 Site: right antecubital; Disposition Summary: 05/09/23 06:07 Hospitalization Ordered Hospitalization Status: Observation [facility] Provider: Jorje Mtz cha Location: Telemetry/MedSurg (observation) phu Condition: Stable phu Problem: new phu Symptoms: have improved phu Bed/Room Type: Standard [facility] Room Assignment: 425(05/09/23 06:52) Diagnosis - Cholecystitis, unspecified phu - Other cholelithiasis with obstruction phu - UTI/ Urinary tract infection, site not specified phu - Epigastric abdominal tenderness [facility] Discharge Instructions: - Discharge Summary Sheet phu - Nonspecific Chest Pain, Adult phu - Dysuria phu - Urinary Tract Infection, Adult phu - Urinary Tract Infection, Adult, [id number] phu - Nonspecific Chest Pain, Adult, [id number] phu - Aspirin and Your Heart [facility] Forms: - Medication Reconciliation Form phu - SBAR form [facility] - Leadership Thank You Letter [facility] Prescriptions: - Pepcid 20 mg Oral Tablet - take 1 tablet by ORAL route every 12 hours for 10 days; 20 tablet; Refills: 0, [facility] Product Selection Permitted - Zofran 4 mg Oral Tablet - take 1 tablet by ORAL route every 12 hours As needed; 20 tablet; Refills: 0, [facility] Product Selection Permitted - Cipro 500 mg Oral Tablet - take 1 tablet by ORAL route every 12 hours for 7 days; 14 tablet; Refills: 0, [facility] Product Selection Permitted - dicyclomine 20 mg Oral Tablet - take 1 tablet by ORAL route 4 times per day; 28 tablet; Refills: 0, Product [facility] Selection Permitted Signatures: Dispatcher [employer] Selvin Rodas MD MD cha Garcia, Cindy, RN RN cg Ilda Connell RN RN sg5 Corrections: (The following items were deleted from the chart) 06:52 06:07 [facility] cg
[2023-05-09] MEDS ORDERED: NA CHLORIDE 0.9% 100 ML ONE (06:24)
[2023-05-09] MEDS ORDERED: PIPERACIL/TAZO 3.375 GM VIAL IV ONE (06:24)
[2023-05-09] MEDS ORDERED: ONDANSETRON 4 MG/2 ML VIAL IV PRN (08:22)
[2023-05-09] MEDS ORDERED: ACETAMINOPHEN 325 MG TABLET PO PRN (08:30)
[2023-05-09] MEDS: NS KCL 20MEQ 20 MEQ/1,000 ML BAG IV SCH ×2 (11:20→16:22)
[2023-05-09] MEDS: FAMOTIDINE 20 MG/2 ML VIAL IV SCH ×2 (11:21→22:00)
[2023-05-09] MEDS ORDERED: MIDAZOLAM HCL 2 MG/2 ML INJ ONE (13:07)
[2023-05-09] MEDS ORDERED: FENTANYL CITR 100 MCG/2 ML ONE ×2 (13:07→16:49)
[2023-05-09] MEDS ORDERED: ROCURONIUM 50 MG/5 ML VIAL IV ONE ×2 (13:07→16:48)
[2023-05-09] MEDS ORDERED: GLYCOPYRROLATE 0.2 MG/ML SYR ONE (13:07)
[2023-05-09] MEDS ORDERED: LIDOCAINE 2% MPF 5 ML VIAL ONE (13:07)
[2023-05-09] MEDS ORDERED: propofoL 200 MG/20 ML VIAL IV ONE (13:07)
[2023-05-09] MEDS ORDERED: NEOSTIGMINE 1 MG/ML -10 ML VIAL ONE (13:09)
--- NOTE | 2023-05-09 14:23 | RAD REPORT ---
EXAM DESCRIPTION: US - Abdomen Exam Limited - 05/09/2023 5:30 am CLINICAL HISTORY: 27 years Female ABD PAIN COMPARISON: Abdominal pelvic CT May 09, 2023 TECHNIQUE: Transverse and longitudinal sonograms obtained with guzman scale sonography. FINDINGS: Multiple echogenic foci gallbladder. Intense shadowing. Finding compatible with gallbladde r packed with stones. Multiple calculi. Largest calculus measures 1.8 cm. Gallbladder wall mildly thi ckened. No pericholecystic fluid. Common bile duct measures 7.6 mm. Mild extrahepatic biliary dilatation Visualized portions of the liver appears unremarkable IMPRESSION: 1. Cholelithiasis. Gallbladder packed with calculi 2. Mild extrahepatic biliary dilatation 3. Mild gallbladder wall thickening which can indicate cholecystitis. If further evaluation warrant ed, hepatobiliary scan recommended Electronically signed by: Jaciel Abebe MD 05/09/2023 8:57 AM CDT Due to temporary technical issues with the PACS/Fluency reporting system, reports are being signed by the in house radiologists without review as a courtesy to insure prompt reporting. The interpreting radiologist is fully responsible for the content of the report.
[2023-05-09] MEDS: PIPER TAZO 3.375 GM in NA CHLORIDE 0.9% 100 ML IV SCH ×2 (14:30→22:00)
[2023-05-09] MEDS ORDERED: Ringers Lactate 1,000 ML IV ONE ×2 (14:40→17:08)
--- NOTE | 2023-05-09 14:51 | RAD REPORT ---
EXAM DESCRIPTION: CT - Abdomen Pelvis W Contrast - 05/09/2023 7:41 am CLINICAL HISTORY: ABD PAIN TECHNIQUE: Contiguous axial images obtained through the abdomen and pelvis following the uneventful administration of IV contrast. Coronal and sagittal reformatted images were provided. This exam was performed according to our departmental dose-optimization program, which includes autom ated exposure control, adjustment of the mA and/or kV according to patient size and/or use of iterati ve reconstruction technique. COMPARISON: None available for comparison. FINDINGS: Lung bases: Clear Liver: Mild periportal edema which may be seen with hepatic dysfunction or volume overload. Gallbladder and biliary system: Gallbladder wall thickening and trace pericholecystic fluid, which ma y be secondary to hepatic dysfunction or intrinsic gallbladder disease. Dilatation of the common bile duct measuring approximately 1.1 cm. Recommend further evaluation with biliary ultrasound. Pancreas: Unremarkable Spleen: Unremarkable Adrenals: Unremarkable Kidneys: Normal renal cortical enhancement. No calculi. No hydronephrosis. GI: No obstruction. No appreciable mucosal thickening. Appendix: No findings to suggest acute appendicitis. Urinary bladder: Unremarkable Reproductive: Unremarkable as visualized Lymph nodes: No pathologically enlarged lymph nodes. Peritoneum: Trace nonspecific fluid in the pelvis, which may be physiologic.. No free air. Vessels: No abdominal aortic aneurysm. Abdominal wall: Unremarkable Bones: Unremarkable IMPRESSION: 1. Gallbladder wall thickening and trace pericholecystic fluid, which may be secondary to hepatic dysfunction or intrinsic gallbladder disease. Dilatation of the common bile duct measurin g approximately 1.1 cm. Recommend further evaluation with biliary ultrasound. 2. Mild periportal edema which may be seen with hepatic dysfunction or volume overload. Electronically signed by: Crow Escobar MD 05/09/2023 6:22 AM CDT Due to temporary technical issues with the PACS/Fluency reporting system, reports are being signed by the in house radiologists without review as a courtesy to insure prompt reporting. The interpreting radiologist is fully responsible for the content of the report.
[2023-05-09] MEDS ORDERED: SUCCINYLCHOLINE 20 MG/ML (10 ML) IV ONE (15:25)
--- NOTE | 2023-05-09 15:43 | P.HP ---
Date of Service: 05/09/23 PC: This patient presented the emergency room with severe abdominal pain for diagnosis and treatment. HPC: Patient has been having pain and discomfort for the last few months. Associated with a lot of nausea and belching. Has had referred pain to her shoulder off and on. Came in tonight as she could no longer stand the pain anymore. PSHx: Negative PMHx: No blood pressure, no diabetes Social Hx: No known allergies Sys R: No cough, wheeze, shortness of breath. No chest pain or palpitation. Denies any urinary complaints O/E: Awake alert vital signs are stable HEENT: Not jaundiced Chest: Air entry equal bilaterally Abd: Mild tenderness of the right upper quadrant [place]: Intact Data: Has documented gallstones Impression: Cholecystitis with cholelithiasis Plan: I will taken the operating room for laparoscopic cholecystectomy with a cholangiogram. There was a question whether or not this patient may or may not have a common bile duct stone. Should she we will attempt to do a spyglass with a stone removal. The risks of these procedures have been discussed. She understands and wants us to proceed.
[2023-05-09] MEDS ORDERED: EPHEDRINE SULF 50 MG/ML VIAL ONE (16:37)
[2023-05-09 17:49] VITALS: BMI 35.5
--- NOTE | 2023-05-09 18:09 | P.OP ---
Preoperative diagnosis: Acute on chronic cholecystitis with cholelithiasis, possible choledocholith Postoperative diagnosis: Acute on chronic cholecystitis with cholelithiasis, choledocholithiasis Primary procedure: Laparoscopic cholecystectomy Secondary procedure: Exploration of common bile Other procedure(s): Intraoperative cholangiogram with fluoroscopy Anesthesia: General Estimated blood loss: Less than 20 cc Specimen: 1 gallbladder and Findings: Common bile duct stones Operative Technique: The patient brought the operating room placed supine on the table. After the induction of adequate general endotracheal anesthesia, the area of the abdomen was prepped with a DuraPrep solution, she was draped in the usual aseptic baltazar er. A subumbilical incision was made. This was brought down through the skin and subcutaneous tissue. The Visiport was used to enter the peritoneal cavity and created pneumoperitoneum to approximately 12 mmHg. Under direct vision a 5 mm trocar was placed in the upper midline, and 2 other 5 mm trocars on the right lateral side of the abdomen. The patient was then placed in reverse Trendelenburg. The patient was then rolled to the left side. We could visualize the right upper quadrant. We noted a markedly inflamed gallbladder around the area of Odonnell's pouch. The grasper was placed on the fundus. Another down by Odonnell's pouch. We were able to dissect out and clear through this edematous area on her gallbladder. There were signs of chronic infection with this. The artery was identified clipped and divided in the usual way. This allowed us access to the visualizing the cystic duct. Having obtained the critical view we put a clip between the cystic duct and the common bile duct. A intraoperative cholangiogram showed that there were filling defects in the common bile duct. The catheter was removed. Another 5 mm trocar was placed on the right lateral side of the abdomen. Through this we were now able to introduce the dilator for the cystic duct into the cystic duct itself. Having dilated the cystic duct we can now pass our cholangiogram or choledocho scope down through the cystic duct. Entry into the common bile duct we could see that there were a lot of wispy as well as smaller stones in kind of a mucoid type haziness there. We advanced the scope into her well into the into the duodenum and passed easily through the sphincter. We then withdrew back and pulled the catheter of the camera out. The area was then irrigated again as we advanced The camera 1 more time. We did not see any hard stones on this second pass. There was still some mucoid type material cleaned to the dietrich. We then irrigated the common bile duct copious amounts of a saline solution. The scope was gradually withdrawn. This having been then we repeated our cholangiogram which showed a good flow of contrast into the duodenum with no evidence of any filling defects remaining. The Sudha the cholangiogram catheter was removed. Attention was turned towards the cystic duct. It was now fully transected. A clip was placed around the cystic duct as well as to Lige ties of chromic. The gallbladder was now dissected free from the liver bed, placed into an Endo Catch, and brought out through the umbilical trocar site. Attention was turned back towards the umbilical trocar site. This site has a quite a diathesis in her anterior abdominal wall. 2 sutures were used to approximate the fascial defect. Having had a good repair at this point, the pneumoperitoneum was then collapsed, the trocars removed, and vicky applied to the skin. At the end of the procedure she was in a stable condition was sent to the recovery room. Needle sponge instrument count were correct. No drains were placed. Complications: None Transferred to: Recovery Room Condition: Good
[2023-05-09] MEDS: HYDROMORPHONE HCL 1 MG/ML INJ ONE ×2 (18:17→18:25)
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
[2023-05-10] MEDS: NS KCL 20MEQ 20 MEQ/1,000 ML BAG IV SCH ×2 (00:22→06:13)
[2023-05-10] MEDS: MORPHINE 4 MG/ML SYR IV PRN ×3 (00:36→11:02)
[2023-05-10 01:55] VITALS: O2SAT 98
[2023-05-10] MEDS: PIPER TAZO 3.375 GM in NA CHLORIDE 0.9% 100 ML IV SCH (05:56)
[2023-05-10 06:07] LABS: Absolute Lymphocytes (CBC) 0.8 K/uL (0.7-4.9); Hematocrit 37.1 % (36.0-45.0); Lymphocytes % 9.5 % (15.3-44.8); MCV 87.7 fL (80-100); MPV 7.5 fL (7.6-11.3); Platelets 244 thou/uL (152-406); RBC Red Blood Cell Count 4.24 M/uL (3.86-4.86)
[2023-05-10 06:43] LABS: Albumin 3.1 g/dL (3.4-5.0); Bilirubin Direct 1.8 mg/dL (0-0.2); Bilirubin Indirect, Calculated 0.4 mg/dL (0.2-0.8); Bilirubin Total 2.2 mg/dL (0.2-1.0); Potassium 4.3 mEq/L (3.5-5.1); Protein, Total 6.3 g/dL (6.4-8.2)
[2023-05-10] MEDS: FAMOTIDINE 20 MG/2 ML VIAL IV SCH (08:07)
[2023-05-10 08:34] LABS: Blood Morphology Comment NOT SEEN (NOT SEEN); Platelet Estimate ADEQ
[2023-05-10 08:50] VITALS: BP 121/64; TEMP 98.6
--- NOTE | 2023-05-11 16:54 | EKG ---
Test Date: 2023-05-09 Test Time: 04:50:49 Shoder Filler: SG MEASUREMENT RESULTS: Intervals: Rate: 53 OK: 138 QRSD: 72 QT: 456 QTc: 427 [place]: P: 37 OK: 138 QRS: 57 T: 21 INTERPRETIVE STATEMENTS: Sinus bradycardia Cannot rule out Anterior infarct, age undetermined Abnormal ECG No previous ECG available for comparison Electronically Signed On 05-11-23 16:46:13 CDT by Beau Garrison
== END 2023-05-10 11:24 | disposition home or self-care (01) | DRG 418 ==
LOC: ER 02:25 → ERHOLD 06:09 → 4TH 07:43 → OBSVTOIN 05-10 10:36
PROVIDERS: ADMIT Surgery; ATTEND Surgery
PROC: BF10YZZ Fluoroscopy of Bile Ducts using Other Contrast (ICD-10-PCS; 2023-05-09)
PROC: 0FT44ZZ Resection of Gallbladder, Percutaneous Endoscopic Approach (ICD-10-PCS; principal; 2023-05-09 12:00)
DX: K80.66 Calculus of gallbladder and bile duct with acute and chronic cholecystitis without obstruction (principal); N39.0 Urinary tract infection, site not specified; M25.519 Pain in unspecified shoulder; Z88.8 Allergy status to other drugs, medicaments and biological substances
CPT/HCPCS: 36415; 74177; 74300; 76705; 80048; 80053; 80076; 81001; 81025; 83690; 84132; 84484; 85025; 88304; 93005; 94010; 96361; 96374; 96375; 99285; G0378; J0696; J1170; J2001; J2250; J2405; J2543; J2704; J2710; J3010; J3480; J7030; J7120; Q9967

== ENCOUNTER 2023-05-18 18:01 | Emergency (ER) | payer SELFPAY ==
--- OUTSIDE RECORDS SUMMARY | 2023-05-18 18:12 | XMS REPORT | Continuity of Care Document ---
:1995 Author Organization [facility] t Address [address] [place] [id number] Care Team Providers Name Role Phone SANFORD ZAPATA Attending Clinician Unavailable Problems This patient has no known problems. Allergies, Adverse Reactions, Alerts Allergy Allergy Status Severity Reaction(s) Onset Inactive Treating Comm ents Source Name Type Date Date Clinician NAPROXEN DRUG Active Rash [facility] INGR[facility]I 04-19 ity of 00:00: [address] Medications This patient has no known medications. Procedures This patient has no known procedures. Encounters Start End Encounter Admission Attending Care Care Encounter Source Date/Time Date/Time Type Type Clinicians Facility Department ID 2021-03-15 2021-03-15 Emergency X [facility] ERT [id number] [facility] 21:46:00 21:46:00 [facility] 2019-08-16 2019-08-16 Emergency X [facility] ERT [id number] [facility] 12:22:12 13:13:00 SANFORD [facility] Results This patient has no known results.
--- NOTE | 2023-05-18 18:20 | EDPHYS ---
Physician Documentation [facility] Name: Rona Godwin Age: 27 yrs Sex: Female : 1995 Arrival Date: 05/18/2023 Time: 18:01 Bed IW3 Private MD: ED Physician Selvin Alexander HPI: 05/18 21:27 This 27 yrs old Female presents to ER via Ambulatory with complaints of Suture snw Removal. 21:27 The patient has vicky on the abdomen. Previous treatment: cholecystectomy per Dr. milo Mtz. Sutures/vicky progress: The patient has no c/o's. The wound is well-healing with no redness, swelling, discharge, or dehiscence reported. The patient has not experienced similar symptoms in the past. as noted. Pt would like vicky removed but needs to f/u with her Surgeon. ROS: 21:27 Constitutional: Negative for fever, chills, and weight loss, Eyes: Negative for injury, snw pain, redness, and discharge, ENT: Negative for injury, pain, and discharge, Neck: Negative for injury, pain, and swelling, Cardiovascular: Negative for chest pain, palpitations, and edema, Respiratory: Negative for shortness of breath, cough, wheezing, and pleuritic chest pain, Abdomen/GI: Negative for abdominal pain, nausea, vomiting, diarrhea, and constipation, Back: Negative for injury and pain, : Negative for injury, bleeding, discharge, and swelling, MS/Extremity: Negative for injury and deformity, Skin: Negative for injury, rash, and discoloration, Neuro: Negative for headache, weakness, numbness, tingling, and seizure, Psych: Negative for depression, anxiety, suicide ideation, homicidal ideation, and hallucinations. Exam: 21:27 Constitutional: This is a well developed, well nourished patient who is awake, alert, snw and in no acute distress. Head/Face: Normocephalic, atraumatic. Eyes: Pupils equal round and reactive to light, extra-ocular motions intact. Lids and lashes normal. Conjunctiva and sclera are non-icteric and not injected. Cornea within normal limits. Periorbital areas with no swelling, redness, or edema. ENT: Nares patent. No nasal discharge, no septal abnormalities noted. Tympanic membranes are normal and external auditory canals are clear. Oropharynx with no redness, swelling, or masses, exudates, or evidence of obstruction, uvula midline. Mucous membranes moist. Neck: Trachea midline, no thyromegaly or masses palpated, and no cervical lymphadenopathy. Supple, full range of motion without nuchal rigidity, or vertebral point tenderness. No Meningismus. Chest/axilla: Normal chest wall appearance and motion. Nontender with no deformity. No lesions are appreciated. Cardiovascular: Regular rate and rhythm with a normal S1 and S2. No gallops, murmurs, or rubs. Normal PMI, no JVD. No pulse deficits. Respiratory: Lungs have equal breath sounds bilaterally, clear to auscultation and percussion. No rales, rhonchi or wheezes noted. No increased work of breathing, no retractions or nasal flaring. Back: No spinal tenderness. No costovertebral tenderness. Full range of motion. Skin: Warm, dry with normal turgor. Normal color with no rashes, no lesions, and no evidence of cellulitis. MS/ Extremity: Pulses equal, no cyanosis. Neurovascular intact. Full, normal range of motion. Neuro: Awake and alert, GCS 15, oriented to person, place, time, and situation. Cranial nerves II-XII grossly intact. Motor strength 5/5 in all extremities. Sensory grossly intact. Cerebellar exam normal. Normal gait. Psych: Awake, alert, with orientation to person, place and time. Behavior, mood, and affect are within normal limits. 21:27 Abdomen/GI: Inspection: abdomen appears normal, trocar sites with vicky x 2 to each site, clean, dry, intact, well approximated. MDM: 18:08 Patient medically screened. snw 18:17 Data reviewed: nurses notes. Counseling: I had a detailed discussion with the patient snw and/or guardian regarding vicky from surgical procedure, discussed with pt that this is part of the surgical f/u and she will need to make an appt with Dr. Mtz. Redford to trocar areas clean, dry, and well approximated.. Administered Medications: No medications were administered Disposition Summary: 05/18/23 18:19 Discharge Ordered Location: Home snw Condition: Stable snw Diagnosis - Encounter for screening, unspecified snw Followup: snw - With: Jorje Mtz MD - When: Tomorrow - Reason: Recheck today's complaints, Continuance of care, Re-evaluation by your physician Forms: - Medication Reconciliation Form snw - Thank You Letter snw - Antibiotic Education snw - Prescription Opioid Use snw - Patient Portal Instructions snw - Leadership Thank You Letter snw Signatures: Zohra Tabares FNP-C [facility]
--- NOTE | 2023-05-18 18:34 | ER ---
Nurse's Notes [facility] Name: Rona Godwin Age: 27 yrs Sex: Female : 1995 Arrival Date: 05/18/2023 Time: 18:01 Bed IW3 Private MD: Diagnosis: Encounter for screening, unspecified Presentation: 05/18 18:31 Chief complaint: Patient states: was asking for surgical suture removal. patient ap3 educated on reasoning we do not remove surgical sutures in the ED. Coronavirus screen: At this time, the client does not indicate any symptoms associated with coronavirus-19. Ebola Screen: No symptoms or risks identified at this time. Initial Sepsis Screen:. Risk Assessment: Do you want to hurt yourself or someone else?. Onset of symptoms is unknown. 18:31 Method Of Arrival: Ambulatory ap3 18:31 Acuity: Unassigned ap3 18:33 Initial Sepsis Screen: Does the patient have a suspected source of infection?. ap3 Triage Assessment: 18:33 General: Appears in no apparent distress. Behavior is calm, cooperative, appropriate ap3 for age. Pain: Denies pain. Screenin:32 [facility] ED Fall Risk Assessment (Adult) History of falling in the last 3 months, ap3 including since admission No falls in past 3 months (0 pts). Abuse screen: Denies threats or abuse. Nutritional screening: No deficits noted. Tuberculosis screening: No symptoms or risk factors identified. ED Course: 18:01 Patient arrived in ED. rg4 18:02 Zohra Tabares FNP-C is [facility]. snw 18:02 Selvin Alexander MD is Attending Physician. snw 18:18 Jorje Mtz MD is Referral Physician. snw 18:32 Triage completed. ap3 18:33 Arm band placed on right wrist. ap3 Administered Medications: No medications were administered Outcome: 18:19 Discharge ordered by . snw 18:33 Patient left the ED. ap3 Signatures: Zohra Tabares FNP-C FNP-Cassie Russo rg4 Ursula Marcelino, ROMAINE RN ap3
== END 2023-05-18 18:33 | disposition home or self-care (01) ==
LOC: ER 18:01
DX: Z48.02 Encounter for removal of sutures (principal)
CPT/HCPCS: 99281

== ENCOUNTER 2024-01-29 20:21 | Emergency (ER) | payer SELFPAY ==
--- OUTSIDE RECORDS SUMMARY | 2024-01-29 20:24 | XMS REPORT | Continuity of Care Document ---
Author Name Unknown Address [address] [facility] [address] [facility] [facility] [address] [place] [address] [facility] thconnect Address [address] [facility] [address] [place] [address] Care Team Providers Care Janitor Cleaner Name Role Phone PCP, PATIENT DOES NOT HAVE A Primary Care Physic paulino Unavailable KATHARINA CALIXTO Attending Clinician Unavailable KATHARINA CALIXTO Attending Clinician Unavailable SANFORD ZAPATA Attending Clinician Unavaila ble Payers Payer Name Policy Type Policy Number Effective Date Expirati on Date Source MEDICAID ALIEN PENDING PENDING 2023 00:00:00 Allergies, Adverse Reactions, Alerts Allergy Name Allergy Type Status Severity Reaction(s) Onset Date Inactive Date Treating Clinician Comments Source NAPROXEN DRUG INGREDI Active Rash 04-19 00:00: 00 [facility] Naproxen Propensi ty to adverse reaction s Active Rash 04-19 00:00: 00 [facility] Social History Social Habit Start Date Stop Date Quantity Comments Source Sexual orientation [facility] Sex Assigned At 1995 00:00:00 1995 00:00:00 [facility] Smoking Status Start Date Stop Date Source Tobacco smoking consumption unknown [facility] Medications Ordered Medication Name Filled Medication Name Start Date Stop Date Current Medication? Ordering Clinician Indication Dosage Frequency Signature (SIG) Comments Components Source sodium chloride (NS) injection 5 mL 06-01 20:50: 57 Yes 5mL 5 mL, Intravenou s, PRN, Starting on Wed06/01/23 at 1550, Until Discontinu ed, Routine, IV line flushing [facility] traMADoL (ULTRAM) 50 mg tablet 03-15 00:00: 00 Yes [id number] 50mg Take 1 tablet by mouth every 6 (six) hours as needed for Pain (scale 7-10). Indication s: acute pain [facility] acetaminoph en-codeine (TYLENOL-CO DEINE #3) 300-30 mg tablet 04-06 00:00: 00 Yes [id number] 2{tbl} Take 2 tablets by mouth every 6 (six) hours as needed for Pain (scale 7-10). [facility] traMADOL (ULTRAM) 50 mg tablet 04-20 00:00: 00 Yes 50mg Take 1 tablet by mouth every 6 (six) hours as needed for Pain (scale 4-6). [facility] ofloxacin (FLOXIN) 0.3 % otic drops 04-19 00:00: 00 Yes 5[drp] Place 5 Drops in both ears 3 (three) times daily. [facility] ibuprofen 600 mg tablet 04-19 00:00: 00 Yes 600mg Take 1 tablet by mouth every 6 (six) hours as needed for Pain (scale 4-6). [facility] Vital Signs Vital Name Observation Time Observation Value Comments S ource Systolic blood pressure 2023-06-01 20:28:00 135 mm[Hg] [facility] Diastolic blood pressure 2023-06-01 20:28:00 65 mm[Hg] [facility] Heart rate 2023-06-01 20:28:00 64 /min [facility] Body temperature 2023-06-01 20:28:00 36.67 Shanique [facility] Respiratory rate 2023-06-01 20:28:00 18 /min [facility] Body height 2023-06-01 20:28:00 167.6 cm [facility] Body weight 2023-06-01 20:28:00 90.719 kg [facility] BMI 2023-06-01 20:28:00 32.28 kg/m2 [facility] Oxygen saturation in Arterial blood by Pulse oximetry 2023-06-01 20:28:00 100 /min [facility] Procedures Procedure Date / Time Performed Performing Clinicia n Source ASSIGNMENT OF BENEFITS 2023-06-01 23:10:04 Docto r Unassigned, Dequincy [facility] LIPASE 2023-06-01 21:41:00 Shaq Fountain [facility] COMP. METABOLIC PANEL ([id number]) 2023-06-01 21:41:00 Shaq Fountain [facility] CBC WITH DIFF 2023-06-01 21:41:00 [facility] 2023-06-01 21:41:[address] [facility] CONSENT/REFUSAL FOR DIAGNOSIS AND TREATMENT 2023-06-01 20:14:02 Doctor Unassigned, Dequincy [facility] Encounters Start Date/Time End Date/Time Encounter Type Admission Type Attending [facility] Care Facility Care Department Encounter ID Source 2023-06-08 13:33:02 2023-06-08 13:33:02 Outpatient SFA [facility] [id number] Krunal Marin Michael 2023-06-01 15:31:00 2023-06-01 18:15:00 [facility] ERT [id number] [facility] 2023-06-01 15:31:00 2023-06-01 18:15:00 Emergency [facility] ([facility]) [id number] [facility] 2023-05-21 09:39:56 2023-05-21 09:39:56 Outpatient S[facility] [id number] Krunal Marin Michael 2023-05-20 10:41:41 2023-05-20 10:41:41 Outpatient SFA [facility] [id number] Krunal Rodriguez 2021-03-15 21:46:00 2021-03-15 21:46:00 Emergency X [facility] ERT [id number] [facility] 2019-08-16 12:22:12 2019-08-16 13:13:00 Emergency X SANFORD ZAPATA [facility] ERT [id number] [facility]
[2024-01-29] MEDS ORDERED: ACETAMINOPHEN 500 MG TAB ONE (20:49)
[2024-01-29] MEDS ORDERED: methocarbamoL 500 MG TAB ONE (20:50)
[2024-01-29] MEDS ORDERED: TDAP (DIPHTH,PERTUSS(ACELL),TET VAC) 0.5 ML VIAL IMVAC ONE (20:50)
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
[2024-01-29 23:11] VITALS: BP 113/55; TEMP 97.8; O2SAT 100
== END 2024-01-29 22:25 | disposition home or self-care (01) ==
LOC: ER 20:21
DX: S40.012A Contusion of left shoulder, initial encounter (principal)
CPT/HCPCS: 71045; 96372; 99284